=== PATIENT | male | born 1965 | race Caucasian/White ===

== ENCOUNTER → 2016-06-01 | Outpatient (CLI) | payer SELFPAY ==
[~2016-06-01] MED LIST: FISH OIL CONC1 EACH PO; LOVASTATIN40 MG PO; METOPROLOL SUCC50 MG PO; PLAVIX75 MG PO; ZESTRIL,PRINIVI10 MG PO
== END | disposition home or self-care (01) ==
LOC: NUC 08:07
DX: I25.10 Atherosclerotic heart disease of native coronary artery without angina pectoris (principal); I25.9 Chronic ischemic heart disease, unspecified; Z95.5 Presence of coronary angioplasty implant and graft
CPT/HCPCS: 78452; 93017; A9500; J2785

== ENCOUNTER 2016-06-20 09:53 | Day surgery (SDC) | payer OTHER ==
[~2016-06-20] VITALS: Ht 175.3 cm; Wt 103.1 kg
[2016-06-20] MEDS ORDERED: METFORMIN HCL500 MG PO (10:49)
[2016-06-20] MEDS ORDERED: LANTUS 3 M100 UNITS1 SQ (10:51)
[2016-06-20 11:04] LABS: POINT-OF-CARE METER ID UU13113696
[2016-06-20] MEDS ORDERED: ASPIR 8181 M1 PO ×2 (11:13)
[2016-06-20] MEDS ORDERED: NEURONTIN300 MG PO (11:14)
[2016-06-20] MEDS ORDERED: ERGOCALCIF50000 UNIT PO (11:14)
[2016-06-20 17:45] VITALS: BP 113/84
[2016-06-20 17:48] VITALS: BP 113/84
[2016-06-20 19:23] VITALS: BP 124/74
[2016-06-20 23:42] VITALS: BP 124/68
[2016-06-21 04:10] VITALS: BP 123/78
[2016-06-21 07:07] LABS: EOSINOPHIL (%) 2.9 % (0-5); EOSINOPHIL COUNT 0.2 K/uL (0-0.3); HEMATOCRIT 42.4 % (38.0-50.0); IMMATURE GRANULOCYTE (%) 0.3 % (0.0-0.7); LYMPHOCYTE COUNT 2.9 K/uL (1.0-2.8); MCH 30.1 PG (29.0-34.0); MCHC 35.4 G/DL (30.0-36.0); MCV 85.1 FL (86-99); MEAN PLAT.VOLUME 10.6 uM^3 (9.0-12.4); MONOCYTE (%) 7.9 % (3-12); MONOCYTE COUNT 0.6 K/uL (0-0.8); NEUTROPHIL (%) 49.5 % (45-76); NEUTROPHIL COUNT 3.7 K/uL (1.8-6.4); PLATELET COUNT 149 K/uL (156-360); RBC DIS.WIDTH-CV 12.9 % (11.8-14.6); RBC DIS.WIDTH-SD 39.3 % (39-53); RED BLOOD COUNT 4.98 M/uL (4.00-5.50)
[2016-06-21 07:14] LABS: WHITE BLOOD COUNT 7.5 K/uL (4.1-10.2)
[2016-06-21 07:50] LABS: ANION GAP 9 MEQ/L (2-14); CHLORIDE 107 MEQ/L (99-109); GFR ESTIMATE (CALCULATED) > 59 mL/min/; GLUCOSE 135 mg/dL (70-99); POTASSIUM 4.1 MEQ/L (3.7-5.4); SAMPLE HEMOLYSIS CHECK 0; SAMPLE ICTERIC CHECK 0; SAMPLE LIPEMIA CHECK 0; SODIUM 139 MEQ/L (136-147); UREA NITROGEN (BUN) 14 mg/dL (9-23)
[2016-06-21 09:40] LABS: TROP-I INTERPRETATION NEGATIVE; TROPONIN-I 0.21 ng/mL (0.0-0.30)
[2016-06-21 09:43] VITALS: BP 126/82
[2016-06-21 10:17] LABS: Estimated Average Glucose 223 mg/dL (70-123); HEMOGLOBIN A1c (GLYCOHEMOGLOB) 9.4 % HGB (Below 5.7)
[2016-06-21] MEDS ORDERED: CLOPIDOGREL75 MG PO (10:19)
[2016-06-21] MEDS ORDERED: PRAVASTATIN SOD40 MG PO (10:20)
[2016-06-21 11:14] LABS: POINT-OF-CARE METER ID UU13113698
[2016-06-21 11:53] VITALS: BP 132/84
== END 2016-06-21 15:45 | disposition home or self-care (01) ==
LOC: CATH 09:53 → 4EAST 12:30 → 2SOUTH 12:30 → 4EAST 17:40
PROVIDERS: Internal Medicine Cardiovascular Disease
DX: I25.10 Atherosclerotic heart disease of native coronary artery without angina pectoris (principal); R06.02 Shortness of breath; R94.39 Abnormal result of other cardiovascular function study; I10 Essential (primary) hypertension; E78.5 Hyperlipidemia, unspecified; E11.9 Type 2 diabetes mellitus without complications; I25.2 Old myocardial infarction
CPT/HCPCS: 80048; 82948; 83036; 84484; 85025; 85347; 93005; C1725; C1769; C1874; C1887; G0378; J0461; J1644; J1815; J2250; J3010; J3246; J7030; J7050

== ENCOUNTER → 2016-11-08 | Outpatient (CLI) | payer OTHER ==
[~2016-11-08] MED LIST changes: +ASPIR 8181 M1 PO; +CLOPIDOGREL75 MG PO; +ERGOCALCIF50000 UNIT PO; +GLIMEPIRIDE PO; +LANTUS 3 M100 UNITS1 SQ; +METFORMIN HCL500 MG PO; +NEURONTIN300 MG PO; +PRAVASTATIN SOD40 MG PO; +PROTONIX40 MG PO; +[UNRECOGNIZED DRUG - OTHER] PO
== END | disposition home or self-care (01) ==
LOC: CDC 10:06
DX: K40.90 Unilateral inguinal hernia, without obstruction or gangrene, not specified as recurrent (principal)
CPT/HCPCS: 93000

== ENCOUNTER 2016-11-14 05:31 | Day surgery (SDC) | payer OTHER ==
[~2016-11-14] VITALS: Ht 175.3 cm; Wt 102.1 kg
[2016-11-14 06:21] LABS: POINT-OF-CARE METER ID UU13113694
[2016-11-14] MEDS ORDERED: LANTUS 10100 UNITS/ SC (06:27)
[2016-11-14 06:54] VITALS: BP 118/78
[2016-11-14] MEDS ORDERED: NORCO 5/3251 TABLET PO (09:11)
[2016-11-14 09:21] LABS: POINT-OF-CARE METER ID UU13113675; POINT-OF-CARE USER ID 515036437
[2016-11-14 10:00] VITALS: BP 132/84
[2016-11-14 11:10] VITALS: BP 108/71
== END 2016-11-14 11:30 | disposition home or self-care (01) ==
LOC: SDC
PROVIDERS: Surgery
PROC: 0YQ50ZZ Repair Right Inguinal Region, Open Approach (ICD-10-PCS; principal; 2016-11-14)
DX: K40.90 Unilateral inguinal hernia, without obstruction or gangrene, not specified as recurrent (principal); Z95.5 Presence of coronary angioplasty implant and graft; E11.9 Type 2 diabetes mellitus without complications; I25.10 Atherosclerotic heart disease of native coronary artery without angina pectoris; I25.2 Old myocardial infarction; Z79.02 Long term (current) use of antithrombotics/antiplatelets; Z87.891 Personal history of nicotine dependence; K21.9 Gastro-esophageal reflux disease without esophagitis
CPT/HCPCS: 82948; C1781; J0131; J0690; J1885; J2250; J2405; J3010; S0020

== ENCOUNTER 2017-04-28 12:08 | Emergency (ER) | payer OTHER ==
[~2017-04-28] VITALS: Ht 175.3 cm; Wt 107.3 kg
[~2017-04-28 12:08] MED LIST changes: +LANTUS 10100 UNITS/ SC; +NORCO 5/3251 TABLET PO
[2017-04-28 14:00] LABS: EOSINOPHIL (%) 0.6 % (0-5); EOSINOPHIL COUNT 0.1 K/uL (0-0.3); HEMATOCRIT 43.6 % (38.0-50.0); IMMATURE GRANULOCYTE (%) 0.4 % (0.0-0.7); INSTRUMENT ABS NEUTROPHIL CT 7.5 K/uL; LYMPHOCYTE COUNT 1.7 K/uL (1.0-2.8); MCH 29.8 PG (29.0-34.0); MCHC 34.6 G/DL (30.0-36.0); MEAN PLAT.VOLUME 10.2 uM^3 (9.0-12.4); MONOCYTE COUNT 0.5 K/uL (0-0.8); NEUTROPHIL COUNT 7.5 K/uL (1.8-6.4); PLATELET COUNT 159 K/uL (156-360); RED BLOOD COUNT 5.07 M/uL (4.00-5.50); WHITE BLOOD COUNT 9.9 K/uL (4.1-10.2)
[2017-04-28 14:09] LABS: CHLORIDE 104 mEq/L (99-109); POTASSIUM 4.3 mEq/L (3.7-5.4); SODIUM 137 mEq/L (136-147)
[2017-04-28 14:11] LABS: GLUCOSE 188 mg/dL (70-99)
[2017-04-28 14:12] LABS: ANION GAP 8 MEQ/L (2-14)
[2017-04-28 14:15] LABS: GFR ESTIMATE (CALCULATED) > 59 mL/min/ (58.99-99999)
[2017-04-28 14:16] LABS: UREA NITROGEN (BUN) 12 mg/dL (9-23)
[2017-04-28] MEDS ORDERED: CITRATE OF MAG296 ML PO (14:45)
[2017-04-28 15:26] VITALS: BP 121/86
[2017-04-29 10:26] LABS: DIRECT BILIRUBIN 0.1 mg/dL (0.0-0.3); TOTAL BILIRUBIN 0.5 MG/DL (0.0-1.0)
[2017-04-29 10:31] LABS: ALKALINE PHOSPHATASE 59 IU/L (3-129); HDL CHOLESTEROL 36 MG/DL (Desirable>=40); LDL CHOLESTEROL 78 mg/dL (Desirable<100); NON-HDL CHOLESTEROL 101 mg/dL (Desirable<160); TOTAL CHOLESTEROL 137 mg/dL (Desirable<200); TRIGLYCERIDES 115 MG/DL (Normal: <150)
[2017-04-29 10:58] LABS: Estimated Average Glucose 217 mg/dL (70-123); HEMOGLOBIN A1c (GLYCOHEMOGLOB) 9.2 % HGB (Below 5.7)
== END 2017-04-28 15:42 | disposition home or self-care (01) ==
LOC: EME 12:08
PROVIDERS: Emergency Medicine
DX: K59.00 Constipation, unspecified (principal); E78.5 Hyperlipidemia, unspecified; E11.9 Type 2 diabetes mellitus without complications; I25.10 Atherosclerotic heart disease of native coronary artery without angina pectoris; I25.2 Old myocardial infarction; Z95.5 Presence of coronary angioplasty implant and graft; Z87.442 Personal history of urinary calculi; Z87.891 Personal history of nicotine dependence; Z88.5 Allergy status to narcotic agent; Z79.4 Long term (current) use of insulin; Z79.82 Long term (current) use of aspirin
CPT/HCPCS: 74020; 80048; 80061; 80076; 83036; 85025; 99281; 99284